=== PATIENT | female | born 1960 | race Caucasian/White ===

== ENCOUNTER 2016-08-20 14:50 | Inpatient (IN) | payer BC ==
[~2016-08-20] VITALS: Ht 165.1 cm; Wt 73.3 kg
[2016-08-20] VITALS (9 sets, daily range): BP systolic 99–118; RESP 20; TEMP 98.4; Ht 165.1 cm; Wt 73.3 kg
[2016-08-20] MEDS ORDERED: METOPROLOL 5 MG/5 ML VIAL IV ONE ×2 (15:15→17:16)
[2016-08-20] MEDS ORDERED: DILTIAZEM 50 MG/10 ML VIAL IV ONE (15:50)
[2016-08-20] MEDS ORDERED: ED DILTIAZEM DRIP 125 ML IV ONE (15:50)
[2016-08-20] MEDS ORDERED: SODIUM CHLORIDE 0.9% 1,000 ML ONE (15:58)
[2016-08-20] MEDS ORDERED: ENOXAPARIN 80 MG/0.8 ML SYR SUBQ ONE (17:46)
[2016-08-20] MEDS ORDERED: Aspirin 325 MG TAB PO ONE (18:15)
[2016-08-20] MEDS ORDERED: CARDIZEM 1 MG/ML DRIP 125 ML IV SCH (18:15)
[2016-08-20] MEDS ORDERED: ACETAMINOPHEN 325 MG TAB PO PRN (18:15)
[2016-08-20] MEDS ORDERED: ONDANSETRON 4 MG VIAL IV PRN (18:15)
[2016-08-20] MEDS ORDERED: SALINE FLUSH 10 ML FLUSH PRN (18:15)
[2016-08-20] MEDS ORDERED: MORPHINE 2 MG/ML SYR IV PRN (18:15)
[2016-08-20] MEDS: SALINE FLUSH 10 ML FLUSH SCH (20:00)
[2016-08-20] MEDS ORDERED: METOPROLOL TART 25 MG TAB PO SCH (21:00)
[2016-08-20] MEDS: METOPROLOL TART 50 MG TAB PO SCH (21:00)
[2016-08-20] MEDS ORDERED: Atorvastatin 40 MG TAB PO SCH (21:00)
[2016-08-20] MEDS: PANTOPRAZOLE 40 MG TAB PO SCH (22:15)
[2016-08-21] VITALS (24 sets, daily range): BP systolic 106–139; RESP 16–18; TEMP 94.4–98.4
[2016-08-21] MEDS ORDERED: SODIUM CHLORIDE 0.9% FLUSH BAG 500 ML IV SCH (06:00)
[2016-08-21] MEDS ORDERED: ENOXAPARIN 80 MG/0.8 ML SYR SUBQ SCH (06:00)
[2016-08-21] MEDS: PANTOPRAZOLE 40 MG TAB PO SCH ×2 (06:09→16:26)
[2016-08-21] MEDS ORDERED: DIAZEPAM 5 MG TAB PO ONE (08:40)
[2016-08-21] MEDS ORDERED: LORAZEPAM 0.5 MG TAB PO PRN (08:40)
[2016-08-21] MEDS ORDERED: TEMAZEPAM 15 MG CAP PO PRN (08:40)
[2016-08-21] MEDS ORDERED: TEMAZEPAM 7.5 MG CAP PO PRN (08:40)
[2016-08-21] MEDS ORDERED: ACETAMINOPHEN 325 MG TAB PO PRN (08:40)
[2016-08-21] MEDS: METOPROLOL TART 50 MG TAB PO SCH (08:54)
[2016-08-21] MEDS: SALINE FLUSH 10 ML FLUSH SCH (08:54)
[2016-08-21] MEDS ORDERED: ASPIRIN EC 81 MG TAB PO SCH (09:00)
[2016-08-21] MEDS ORDERED: MIDAZOLAM 2 MG/2 ML INJ ONE (20:36)
[2016-08-21] MEDS ORDERED: PROMETHAZINE 25 MG/ML VIAL ONE (20:36)
[2016-08-21] MEDS ORDERED: MEPERIDINE 50 MG/ML ONE (20:36)
[2016-08-21] MEDS ORDERED: LIDOCAINE 2% 20 ML ONE (20:36)
== END 2016-08-21 18:28 | disposition home or self-care (01) | DRG 282 ==
LOC: CANRESERV → ENRESERVDT → ENRESERVTM → ER 14:50 → EMR 18:13 → ENPENDDIS 18:13 → PCU 20:01
PROVIDERS: ADMIT Internal Medicine; ATTEND Internal Medicine
PROC: 4A023N7 Measurement of Cardiac Sampling and Pressure, Left Heart, Percutaneous Approach (ICD-10-PCS; principal; 2016-08-21)
PROC: B2111ZZ Fluoroscopy of Multiple Coronary Arteries using Low Osmolar Contrast (ICD-10-PCS; 2016-08-21)
PROC: B2151ZZ Fluoroscopy of Left Heart using Low Osmolar Contrast (ICD-10-PCS; 2016-08-21)
DX: I21.4 Non-ST elevation (NSTEMI) myocardial infarction (principal); I10 Essential (primary) hypertension; I48.0 Paroxysmal atrial fibrillation; G43.909 Migraine, unspecified, not intractable, without status migrainosus; G89.29 Other chronic pain; I05.0 Rheumatic mitral stenosis; M19.90 Unspecified osteoarthritis, unspecified site; M54.9 Dorsalgia, unspecified; Z98.84 Bariatric surgery status; R19.7 Diarrhea, unspecified; R11.0 Nausea
CPT/HCPCS: 36415; 71010; 80053; 80061; 82550; 82553; 83735; 84439; 84443; 84484; 85014; 85018; 85025; 85610; 85730; 87804; 93005; 93306; 93458; 94799; 96365; 96366; 96372; 96375; 96376; 99223